=== PATIENT | female | born 1995 | race Caucasian/White ===

== ENCOUNTER 2019-01-08 13:32 | Emergency (ER) | payer SELFPAY ==
--- NOTE | 2019-01-08 16:38 | ED ---
Dizziness - HPI Summary HPI Summary: 23 year old F [facility] accompanied by male friend complains of intermittent dizziness which makes her feel as if she might pass out since Friday afternoon (2 days ago). Symptoms aggravated by standing up and moving her head. Symptoms alleviated by lying down. Patient reports intermittent tachycardia, palpitations, bradycardia, nausea since 2 days ago. She reports intermittent chest pressure since 2 days ago. She reports fatigue and shortness of breath since 1 day ago. 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 Male friend states that patient was pale and had difficulty with speech 2 evenings ago. Now, patient reports dizziness and nausea. Patient had similar symptoms 6 years ago dx vasovagal syncopal. Patient denies recent common colds and recent upper respiratory infections. Patient states she recently returned from [facility] on 12/25/18. LNMP yesterday. - History Of Current Complaint Chief Complaint: EDDizziness Stated Complaint: DIZZY,WEAKNESS,HEADACHE PER PT Time Seen by Provider: 01/08/19 16:31 Hx Obtained From: Patient, Family/Cleaning Specialist - male friend Onset/Duration: Still Present Timing: Intermittent Episode Lasting Aggravating Factor(s): Other - standing up and moving head Alleviating Factor(s): Lying Down Associated Signs And Symptoms: Positive: Other: - reports intermittent tachycardia, palpitations, bradycardia, nausea, chest pressure - Allergies/Home Medications Allergies/Adverse Reactions: Allergies Allergy/AdvReac Type Severity Reaction Status Date / Time No Known Allergies Allergy Verified 01/08/19 17:25 Home Medications: Home Medications Multivitamins/Minerals TAB* [Theragran/minerals TAB*] 1 tab PO DAILY 01/08/19 [ History Confirmed 01/08/19] PMH/Surg Hx/FS Hx/Imm Hx Sensory History: Reports: Hx Contacts or Glasses Opthamlomology History: Reports: Hx Contacts or Glasses Psychiatric History: Reports: Hx Anxiety - Surgical History Surgery Procedure, Year, and Place: n/a Infectious Disease History: No Infectious Disease History: Reports: Traveled Outside the [place] in Last 30 Days - [facility] - Family History Known Family History: Positive: Hypertension - maternal grandmother - Social History Alcohol Use: None Hx Substance Use: No Substance Use Type: Reports: None Hx Tobacco Use: No Smoking Status (MU): Never Smoked Tobacco Review of Systems Positive: Fatigue Positive: Palpitations, Other - chest pressure, tachycardia, bradycardia Positive: Shortness Of Breath Positive: Nausea Neurological: Other - Dizziness All Other Systems Reviewed And Are Negative: Yes Physical Exam - Summary Physical Exam Summary: VITAL SIGNS: Reviewed. GENERAL: Patient is a well-developed and nourished FEMALE who is lying comfortable in the stretcher. Patient is not in any acute respiratory distress. HEAD AND FACE: No signs of trauma. No ecchymosis, hematomas or skull depressions. No sinus tenderness. EYES: PERRLA, EOMI x 2, No injected conjunctiva, no nystagmus. EARS: Hearing grossly intact. Ear canals and tympanic membranes are within normal limits. MOUTH: Oropharynx within normal limits. NECK: Supple, trachea is midline, no adenopathy, no JVD, no carotid bruit, no c- spine tenderness, neck with full ROM. CHEST: Symmetric, no tenderness at palpation. LUNGS: Clear to auscultation bilaterally. No wheezing or crackles. CVS: Regular rate and rhythm, S1 and S2 present, no murmurs or gallops appreciated. ABDOMEN: Soft, non-tender. No signs of distention. No rebound, no guarding, and no masses palpated. Bowel sounds are normal. EXTREMITIES: FROM in all major joints, no edema, no cyanosis or clubbing. NEURO: Alert and oriented x 3. No acute neurological deficits. Speech is normal and follows commands. SKIN: Dry and warm. Triage Information Reviewed: Yes Vital Signs On Initial Exam: Initial Vitals Temp Pulse Resp BP Pulse Ox 97.9 F 65 16 105/65 97 01/08/19 13:40 01/08/19 13:40 01/08/19 13:40 01/08/19 13:40 01/08/19 13:40 Vital Signs Reviewed: Yes Diagnostics - Vital Signs Vital Signs Temp Pulse Resp BP Pulse Ox 01/08/19 16:20 97.6 F 55 16 103/49 96 01/08/19 13:40 97.9 F 65 16 105/65 97 - Laboratory Result Diagrams: 01/08/19 17:18 01/08/19 17:18 Lab Statement: Any lab studies that have been ordered have been reviewed, and results considered in the medical decision making process. - EKG 1702 Cardiac Rate: Bradycardia - 53 BPM EKG Rhythm: Sinus Bradycardia Summary of EKG Findings: Sinus bradycardia 53 BPM. This is a poor quality EKG. Dizzy Course/Dx - Course Assessment/Plan: 23 year old F presenting to [facility] accompanied by male friend complains of intermittent dizziness which makes her feel as if she might pass out since Friday afternoon (2 days ago). Symptoms aggravated by standing up and moving her head. Symptoms alleviated by lying down. Patient reports intermittent tachycardia, palpitations, bradycardia, nausea since 2 days ago. She reports intermittent chest pressure since 2 days ago. She reports fatigue and shortness of breath since 1 day ago. 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 Male friend states that patient was pale and had difficulty with speech 2 evenings ago. Now, patient reports dizziness and nausea. Patient had similar symptoms 6 years ago dx vasovagal syncopal. Patient denies recent common colds and recent upper respiratory infections. Patient states she recently returned from [facility] on 12/25/18. LNMP yesterday. Blood work without any significant abnormality. EKG normal sinus rhythm without any ST elevation. In the ED course, the patient was given meclizine and the symptoms have significantly improved. Therefore, the patient will be discharged home with follow-up with PCP. - Diagnoses Provider Diagnoses: Vertigo Discharge - Sign-Out/Discharge Documenting (check all that apply): Patient Departure - Discharge Patient Received Moderate/Deep Sedation with Procedure: No - Discharge Plan Condition: Stable Disposition: HOME Prescriptions: Meclizine TAB* [Antivert 12.5 TAB*] 25 mg PO TID PRN #30 tab PRN Reason: Vertigo Patient Education Materials: Dizziness (ED) Referrals: [facility] [Outside] - 3 Days Additional Instructions: Follow up with your primary care provider in 3 days. Return to the Emergency Department for new or worsening symptoms. - Billing Disposition and Condition Condition: STABLE Disposition: Home - Attestation Statements Document Initiated by Scribe: Yes Documenting Scribe: Mckayla Hannah Provider For Whom Scribe is Documenting (Include Credential): Enrike Short MD Scribe Attestation: Mckayla Cota, scribed for Enrike Short MD on 08/16/19 at 1905. Scribe Documentation Reviewed: Yes Provider Attestation: The documentation as recorded by the scribe, Mckayla Hannah accurately reflects the service I personally performed and the decisions made by me, Enrike Short MD Status of Scribe Document: Viewed
[2019-01-08] MEDS ORDERED: NS 0.9% 1000 ML** 1,000 ML IV ONE (16:54)
[2019-01-08] MEDS ORDERED: Meclizine TAB* 12.5 MG PO ONE (16:54)
[2019-01-08 17:26] LABS: ABS Basophils 0.1 10^3/ul (0-0.2); ABS Eosinophils 0.2 10^3/ul (0-0.6); ABS Lymphocytes 3.7 10^3/ul (1.0-4.8); ABS Monocytes 0.7 10^3/ul (0-0.8); ABS Neutrophils 5.7 10^3/ul (1.5-7.7); Eosinophil % 2.2 %; Hematocrit 44 % (35-47); Hemoglobin 15.1 g/dL (12.0-16.0); Lymphocyte % 35.8 %; Mean Corpuscular HGB Conc 34 g/dL (31-36); Mean Corpuscular Hemoglobin 31 pg (27-31); Mean Corpuscular Volume 90 fL (80-97); Mean Platelet Volume 8.2 fL (7.4-10.4); Nucleated Red Blood Cells % 0.1; Platelet Count 243 10^3/uL (150-450); Red Cell Distribution Width 13 % (10-15); White Blood Count 10.4 10^3/uL (3.5-10.8)
[2019-01-08 17:46] LABS: HCG Pregnancy < 0.60 mIU/mL
[2019-01-08 17:50] LABS: Albumin 4.7 g/dL (3.2-5.2); CO2 Carbon Dioxide 22 mmol/L (22-32); Calcium 9.7 mg/dL (8.6-10.3); Chloride 107 mmol/L (101-111); Sodium 138 mmol/L (135-145)
[2019-01-08 17:56] LABS: ALT 13 U/L (7-52); Albumin/Globulin Ratio 1.5 (1-3); Alkaline Phosphatase 70 U/L (34-104); BUN/Creatinine Ratio 17.5 (8-20); Blood Urea Nitrogen 14 mg/dL (6-24); C Reactive Protein < 1.00 mg/L (<8.01); EGFR African American 105.8 (>60); EGFR Non-African American 87.4 (>60); Globulin 3.1 g/dL (2-4); Glucose 82 mg/dL (70-100); Total Protein 7.8 g/dL (6.4-8.9)
[2019-01-08 18:15] LABS: Anion Gap 9 mmol/L (2-11)
[2019-01-08 18:21] LABS: TSH (Thyroid Stimulating Horm) 1.19 mcIU/mL (0.34-5.60)
[2019-01-08 18:29] LABS: Urine Appearance Cloudy; Urine Bacteria Absent (Absent); Urine Bilirubin Negative (Negative); Urine Blood 3+ (Negative); Urine Color Yellow; Urine Glucose Negative (Negative); Urine Ketones Negative (Negative); Urine Nitrite Negative (Negative); Urine Protein Negative (Negative); Urine Red Blood Cell Trace(0-2/hpf) (Absent); Urine Specific Gravity 1.011 (1.010-1.030); Urine Squamous Epithelial Cell Present (Absent); Urine Urobilinogen Negative (Negative); Urine White Blood Cell Trace(0-5/hpf) (Absent)
[2019-01-08 18:55] VITALS: BP 108/75
== END 2019-01-08 18:40 | disposition home or self-care (01) ==
LOC: ED 13:32
DX: R42 Dizziness and giddiness (principal); F41.9 Anxiety disorder, unspecified
CPT/HCPCS: 36415; 80053; 81003; 81015; 83605; 84443; 84484; 84702; 85025; 86140; 87086; 93005; 96360; 99284; A9270-GY

== ENCOUNTER 2019-02-23 22:30 | Emergency (ER) | payer SELFPAY ==
[2019-02-23 22:36] VITALS: BP 141/81
--- OUTSIDE RECORDS SUMMARY | 2019-02-23 22:41 | XMS REPORT | Continuity of Care Document ---
:1995 External Reference #:[id number] Author Name Trevor Roberto M.D. Address [address] [place] [address] Problems Description No Information Available Social History Type Date Description Comments Sex Unknown Tobacco Use Start: Unknown Never Smoked Cigarettes Tobacco Use Start: Unknown Never Smoked Cigars Tobacco Use Start: Unknown Never Smoked A Pipe Smokeless Tobacco Never Used Smokeless Tobacco ETOH Use Denies alcohol use Tobacco Use Start: Unknown Patient has never smoked Smoking Status Reviewed: 02/23/19 Patient has never smoked Allergies, Adverse Reactions, Alerts Description No Known Drug Allergies Medications Description No Active Medications Immunizations Description No Information Available Vital Signs Date Vital Result Comment 02/23/2019 11:25am Weight 156.00 lb Weight 70.762 kg Height 68.90 inches 5'8.90" Height in cm's 175 cm BMI (Body Mass Index) 23.1 kg/m2 Results Description No Information Available Procedures Date Code Description Status 02/23/2019 05592 Tympanometry Completed 02/23/2019 56665 Comprehensive Audiogram Completed Medical Devices Description No Information Available Encounters Type Date Location Provider Dx Diagnosis Office Visit 02/23/2019 Edward [id number] Vertigo of central 11:15a 05/26/07 Lucy Roberto origin H60.511 Acute actinic otitis externa, right ear Assessments Date Code Description Provider 02/23/2019 H81.4 Vertigo of central origin Trevor Roberto M.D. 02/23/2019 H60.511 Acute actinic otitis externa, right ear Trevor Roberto M.D. Plan of Treatment No Information Available Functional Status Description No Information Available Mental Status Description No Information Available Referrals Description No Information Available
== END 2019-02-23 23:30 | disposition left against medical advice (07) ==
LOC: ED 22:30
DX: R42 Dizziness and giddiness (principal); Z53.21 Procedure and treatment not carried out due to patient leaving prior to being seen by health care provider